=== PATIENT | female | born 1965 | race Caucasian/White ===

== ENCOUNTER 2023-06-25 07:34 | Outpatient (CLI) | payer OTHER, SELFPAY ==
--- NOTE | 2023-06-25 07:45 | MM_ITS ---
WS: [id number] Bilateral screening 3D tomosynthesis digital mammogram, Clinical Data: SCREENING Comparison: None. Findings: The breast parenchymal pattern shows heterogeneous density. There is a round nodule, 1 cm, in the 12 o'clock position in the posterior right breast. The smooth border suggests that it is a benign lesion . No spiculated masses or clustered calcifications are seen. There are no secondary signs of carcinom a. The left breast is normal. Impression: 1. 1 cm nodule posterior aspect right breast. 2. Recommend repeat MLO and cc views of the right breast, in addition ML view. Recommend right [address] ultrasound. MM/[place] [id number] BIRADS: 0-Incomplete: Need additional imaging evaluation FOLLOW UP: See Report The CAD schedule checker was used.
== END 2023-06-25 07:35 | disposition home or self-care (01) ==
LOC: RAD 07:35
PROVIDERS: PCP Nurse Practitioner Family; Visit Provider Nurse Practitioner Family
DX: Z12.31 Encounter for screening mammogram for malignant neoplasm of breast (principal); N63.15 Unspecified lump in the right breast, overlapping quadrants; R92.333 Mammographic heterogeneous density, bilateral breasts
CPT/HCPCS: 77063; 77067